=== PATIENT | male | born 1960 ===

== ENCOUNTER → 2021-09-24 | Outpatient (CLI) | payer BC, OTHER ==
[2021-09-24 19:12] LABS: ALBUMIN 4.1 g/dL (3.4-4.8); POTASSIUM 4.8 mmol/L (3.5-5.1)
[2021-09-24 19:13] LABS: CALCIUM 9.2 mg/dL (8.3-10.5)
[2021-09-24 19:14] LABS: TOTAL PROTEIN 6.5 g/dL (6.2-8.1)
[2021-09-24 19:16] LABS: TOTAL BILIRUBIN 0.4 mg/dL (0.2-1.2)
== END ==
LOC: LAB 18:25
PROVIDERS: Nurse Practitioner
DX: U07.1 COVID-19 (principal)